=== PATIENT | male | born 1990 | race Caucasian/White ===

== ENCOUNTER 2018-06-16 18:18 | Emergency (ER) | payer OTHER, SELFPAY ==
[2018-06-16 18:19] VITALS: BP 120/77; PULSE 97; RESP 20; TEMP 37.2; O2SAT 97; BMI 18.8
[2018-06-16 19:44] VITALS: RESP 16; O2SAT 98
[2018-06-16] MEDS: Fluorescein 1 MG STRIP 1 STRIP EACH EYE (19:59)
[2018-06-16] MEDS: Tetracaine 0.5% Ophthalmic Bottle 1 DRP EACH EYE (19:59)
[2018-06-16 20:08] VITALS: PULSE 89; RESP 16; O2SAT 98
--- NOTE | 2018-06-16 20:22 | ED.VISSUMM ---
- ER Visit Summary Date of Service: 06/16/18 Chief Complaint: Bilateral eye pain and redness History of Present Illness: The patient is a 28 M who presents with severe bilateral eye pain and redness. He works with [email or web address]. 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 He wears corrective contact lenses. He did not have pain while at work. On his drive home he began to have some watering from his right eye and had trouble keeping it open. His symptoms then moved to his left eye. He noticed bilateral redness. He progressively developed severe pain. He states he is unable to open his eyes currently due to the severe pain. He complains of burning pain. He also had bilateral blurry vision. No history of prior similar symptoms. He does not work around any type of welding and cannot think of any other significant UV exposure. Physical Examination: Afebrile vitals normal Patient appears to be in severe pain crying Anterior chamber is deep and quiet He does have some diffuse bilateral conjunctival injection Slit-lamp examination shows diffuse extensive punctate dye uptake consistent with keratitis. There is a larger area of dye uptake on the right eye at approximately the 2 o'clock position. I cannot rule out ulceration. Test Results: [] Emergency Department Course and Treatment: Patient had tetracaine and fluorescein instilled in both eyes. He had marked relief with tetracaine. Slit-lamp examination performed as above. I spoke to ophthalmology on-call, Dr. Monsivais. He recommended Cipro every 3 hours. She was given Cipro here to take home with him. He was also given a [place] home pack. He was advised that if his symptoms worsen to call the ophthalmology's office to be seen tomorrow otherwise to follow-up on Monday. He does understand return for new or worsening symptoms. He is comfortable with the plan. He was discharged. Treatment Plan: [] Disposition: Discharge Impression: Bilateral acute eye pain Bilateral keratitis This note was generated with [employer] dictation software. It may contain incorrect words, spelling, and punctuation that were not noted in review of the chart prior to signing ED Disposition - Plan for ED Patient: Chief Complaint: Eye Problem Referrals: Care Physician,No Primary [Primary Care Provider] -
--- NOTE | 2018-06-16 20:25 | ED.DCSUM_ITS ---
- ER Visit Summary Date of Service: 06/16/18 Chief Complaint: Bilateral eye pain and redness History of Present Illness: The patient is a 28 M who presents with severe bilateral eye pain and redness. 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 He wears corrective contact lenses. He did not have pain while at work. On his drive home he began to have some watering from his right eye and had trouble keeping it open. His symptoms then moved to his left eye. He noticed bilateral redness. He progressively developed severe pain. He states he is unable to open his eyes currently due to the severe pain. He complains of burning pain. He also had bilateral blurry vision. No history of prior similar symptoms. He does not work around any type of welding and cannot think of any other significant UV exposure. Physical Examination: Afebrile vitals normal Patient appears to be in severe pain crying Anterior chamber is deep and quiet He does have some diffuse bilateral conjunctival injection Slit-lamp examination shows diffuse extensive punctate dye uptake consistent with keratitis. There is a larger area of dye uptake on the right eye at approximately the 2 o'clock position. I cannot rule out ulceration. Test Results: [] Emergency Department Course and Treatment: Patient had tetracaine and fluorescein instilled in both eyes. He had marked relief with tetracaine. Slit -lamp examination performed as above. I spoke to ophthalmology on-call, Dr. Monsivais. He recommended Cipro every 3 hours. She was given Cipro here to take home with him. He was also given a [place] home pack. He was advised that if his symptoms worsen to call the ophthalmology's office to be seen tomorrow otherwise to follow-up on Monday. He does understand return for new or worsening symptoms. He is comfortable with the plan. He was discharged. Treatment Plan: [] Disposition: Discharge Impression: Bilateral acute eye pain Bilateral keratitis This note was generated with [employer] dictation software. It may contain incorrect words, spelling, and punctuation that were not noted in review of the chart prior to signing ED Disposition - Plan for ED Patient: Chief Complaint: Eye Problem Referrals: Care Physician,No Primary [Primary Care Provider] -
--- NOTE | 2018-06-16 20:25 | ED.DEP ---
ED Disposition - Plan for ED Patient: Chief Complaint: Eye Problem Instructions: ED Corneal Injury Contact Lens Prescriptions: Hydrocodone Bitart/Apap 5-325 [Culdesac 5MG-325MG] 1 tab PO Q6H PRN PRN 3 Days #8 tab PRN Reason: Pain Referrals: Care Physician,No Primary [Primary Care Provider] - Agustin Monsivais MD [STAFF PHYSICIAN] -
[2018-06-16] MEDS: HYDROcodone Bitartrate/Apap 5/325 Tablet PO (20:40)
[2018-06-16] MEDS: Ciprofloxacin 0.3% 2.5ml Bottle 2 DRP EACH EYE (20:41)
[2018-06-16 20:46] VITALS: PULSE 76; O2SAT 98
== END 2018-06-16 20:47 | disposition home or self-care (01) ==
LOC: ED 20:07
PROVIDERS: Emergency Provider Emergency Medicine
DX: H57.13 Ocular pain, bilateral (principal); H16.9 Unspecified keratitis; Z72.0 Tobacco use
CPT/HCPCS: 99282

== ENCOUNTER 2018-06-22 09:36 | Emergency (ER) | payer OTHER, SELFPAY ==
[2018-06-22 09:36] VITALS: BP 125/75; PULSE 91; RESP 21; TEMP 36.8; O2SAT 99; BMI 18.1
[2018-06-22] MEDS: Ondansetron 4 MG/2 ML Vial IV ×2 (09:59→11:00)
[2018-06-22] MEDS: 0.9% Normal Saline 1,000 ML 999 ML IV ×2 (09:59)
--- NOTE | 2018-06-22 10:00 | ED.DCSUM_ITS ---
- ER Visit Summary Date of Service: 06/22/18 Chief Complaint: Nausea, vomiting, diarrhea and abdominal pain History of Present Illness: The patient is a 28 M 3 day history of nausea, vomiting and diarrhea. Also has lower quadrant abdominal cramping. No dysuria. He has had very minimal oral intake that is been able to keep down. No fever. No one else at home sick. He is accompanied by his . He has no chronic medical problems. He has never had any abdominal surgeries. Physical Examination: Vital signs are stable. Afebrile. He does not look septic or toxic. He appears he does not feel well. He does not look severely dehydrated. H EENT exam unremarkable. Moist mucous membranes. Neck nontender no lymphadenopathy. No meningismus. Lungs clear to auscultation bilaterally. Heart regular rhythm rate about 90. No murmur. Abdomen is soft. Nondistended. Normal bowel sounds. No hernias or masses. Minimal bilateral lower quadrant tenderness. No Worthy sign. No McBurney's point tenderness. No peritoneal signs. Moving all 4 extremities. Neurovascularly intact. No edema. Skin no rashes. Back nontender. Neurologically is awake alert no focal motor deficits. Test Results: CBC normal with a white count of 6. Hemoglobin of 14. Chemistries are unremarkable. Gap is 7. Normal BUN and creatinine. Liver enzymes are unremarkable. Lipase is normal. Emergency Department Course and Treatment: Treated with 2 L normal saline IV fluids. IV Zofran. P.o. fluid challenge. Treatment Plan: Repeat exam patient is doing much better at 10:45 AM. Is on his second liter of fluid. Will be given additional dose of IV Zofran and a first dose of IV Toradol. If he can hold fluids down and be discharged home in his second liter is finished. Disposition: Discharged Impression: Acute nausea, vomiting, diarrhea and abdominal cramping Viral gastroenteritis Mild dehydration This note was generated with [employer] dictation software. It may contain incorrect words, spelling, and punctuation that were not noted in review of the chart prior to signing ED Disposition - Plan for ED Patient: Chief Complaint: Abd Pain Referrals: Care Physician,No Primary [Primary Care Provider] -
[2018-06-22 10:11] LABS: Absolute Neutrophil Count 3.3 X10^3/uL (2.0-7.7); Basophil# 0.08 X10^3/uL; Basophil% 1.3 % (0-1); Eosinophil# 0.34 X10^3/uL; Eosinophils% 5.3 % (0-5); Hematocrit 44.1 % (40-54); Hemoglobin 14.4 g/dl (13.0-16.5); Lymphocyte % 34.6 % (19-41); Mean Corp Hgb Conc 32.7 g/gl (32-36); Mean Corpuscular Hgb 27.2 pg (27.0-32.0); Mean Corpuscular Volume 83.4 fL (80-94); Mean Platelet Vol. 9.8 fl (6.2-12.0); Monocyte# 0.45 X10^3/uL; Monocyte% 7.1 % (0-10); Neutrophil # 3.28 X10^3/uL (2.7-7.7); Neutrophil % 51.5 % (47-70); Platelet Count 236 K/mm3 (150-450); RBC Distribution Width SD 39.5 fl (35.1-43.9); Red Blood Count 5.29 M/mm3 (4.6-6.2); White Blood Count 6.4 K/mm3 (4.4-11.0)
[2018-06-22 10:14] LABS: POSITIVE COUNT NO; POSITIVE DIFFERENTIAL NO; POSITIVE MORPHOLOGY NO
[2018-06-22 10:23] LABS: AST(SGOT) 14 U/L (15-37); Alanine Aminotransfer ALT/SGPT 20 U/L (16-61); Albumin, Serum 3.6 g/dL (3.2-5.0); Alkaline Phosphatase 71 U/L (45-117); Anion Gap 7 (5-15); BUN 6 mg/dL (7-18); BUN/Creat Ratio 7.1 RATIO (10-20); Bilirubin, Direct 0.13 mg/dL (0.00-0.30); Calcium,Total 8.4 mg/dL (8.5-10.1); Chloride 111 mmol/L (98-107); Creatinine, Serum 0.84 mg/dL (0.70-1.30); EST Glomerular Filtration Rate 117 mL/min (>60); Est Glom Filt Rate - Afr Amer 141 mL/min (>60); Estimated Creatinine Clearance 111.15 ml/min; Globulin 3.5 g/dL (2.2-4.2); Glucose 79 mg/dL (74-106); Lipase 161 U/L (73-393); Potassium 4.1 mmol/L (3.5-5.1); Protein, Total 7.1 g/dL (6.4-8.2); Sodium Level 143 mmol/L (136-145)
--- NOTE | 2018-06-22 10:47 | ED.DEP ---
ED Disposition - Plan for ED Patient: Disposition: Home or Assisted Living Chief Complaint: Abd Pain Instructions: ED Gastroenteritis Viral Prescriptions: Ondansetron [Zofran Odt] 4 mg PO Q4H PRN PRN #10 tab.rapdis PRN Reason: Nausea Referrals: Carrillo Tobias MD [STAFF PHYSICIAN] - 3-5 Days if not improving Additional Instructions: Plenty of fluids and rest. Increase diet slowly as tolerated. Zofran as needed for nausea. Return to the ER if feeling worse or unable to hold fluids down.
[2018-06-22] MEDS: Ketorolac 30 MG/ML Syringe IV (10:59)
[2018-06-22 11:03] VITALS: BP 97/68; PULSE 66; RESP 15; O2SAT 100
== END 2018-06-22 11:30 | disposition home or self-care (01) ==
PROVIDERS: Emergency Provider Emergency Medicine
DX: A08.4 Viral intestinal infection, unspecified (principal); E86.0 Dehydration; R11.2 Nausea with vomiting, unspecified; R19.7 Diarrhea, unspecified; R10.30 Lower abdominal pain, unspecified; Z72.0 Tobacco use
CPT/HCPCS: 80048; 80076; 83690; 85025; 96361; 96374; 96375; 96376; 99283; J7030; J2405